=== PATIENT | female | born 1980 | race Caucasian/White ===

== ENCOUNTER 2025-09-17 09:23 | Day surgery (SDC) | payer MEDICAID ==
[~2025-09-17] VITALS: Ht 162.6 cm; Wt 89.4 kg
[~2025-09-17 09:23] MED LIST: SEMA0.253 SUBCUT; simethicone 40mg/0.6ml oral drops 15ml PO ONE
[2025-09-17] MEDS: ringers solution, lacted 1,000 ML IV SCH (10:34)
[2025-09-17] MEDS ORDERED: fentaNYL/PF 50MCG/1 ML 2ML syringe ONE (12:29)
[2025-09-17] MEDS ORDERED: MIDAZolam 1 MG/ML 5ML VIAL ONE (12:29)
[2025-09-17 12:55] VITALS: BP 127/75; PULSE 69; RESP 18; TEMP 98.1; O2SAT 100
[2025-09-17 13:00] VITALS: BP 96/58; PULSE 63; RESP 15; O2SAT 99
[2025-09-17 13:10] VITALS: BP 94/55; PULSE 60; RESP 14; O2SAT 97
[2025-09-17 13:20] VITALS: BP 101/58; PULSE 63; RESP 12; O2SAT 97
[2025-09-17 13:30] VITALS: BP 105/62; PULSE 64; RESP 14; O2SAT 97
== END 2025-09-17 13:40 | disposition home or self-care (01) ==
LOC: GI LAB 09:23
PROVIDERS: ATTEND Internal Medicine Gastroenterology
DX: K92.1 Melena (principal); K57.30 Diverticulosis of large intestine without perforation or abscess without bleeding; K64.8 Other hemorrhoids; F17.210 Nicotine dependence, cigarettes, uncomplicated; Z86.0100 Personal history of colon polyps, unspecified; Z79.899 Other long term (current) drug therapy
CPT/HCPCS: 45378; 82948; J2250; J3010; J7042; J7070; J7120; Z7512; 99152; 99153; A4620